=== PATIENT | male | born 1970 | race African-American/Black ===

== ENCOUNTER 2017-06-19 15:08 | Emergency (ER) | payer OTHER ==
[~2017-06-19] VITALS: Ht 167.6 cm; Wt 62.1 kg
[2017-06-19 15:43] LABS: BASOPHIL COUNT 0.1 K/uL (0-0.1); EOSINOPHIL (%) 2.8 % (0-5); EOSINOPHIL COUNT 0.1 K/uL (0-0.3); HEMATOCRIT 44.7 % (38.0-50.0); IMMATURE GRANULOCYTE (%) 0.2 % (0.0-0.7); INSTRUMENT ABS NEUTROPHIL CT 2.9 K/uL; LYMPHOCYTE COUNT 1.5 K/uL (1.0-2.8); MCHC 36.2 G/DL (30.0-36.0); MCV 88.2 FL (86-99); MEAN PLAT.VOLUME 10.2 uM^3 (9.0-12.4); MONOCYTE (%) 7.4 % (3-12); MONOCYTE COUNT 0.4 K/uL (0-0.8); NEUTROPHIL (%) 58.4 % (45-76); NEUTROPHIL COUNT 2.9 K/uL (1.8-6.4); PLATELET COUNT 149 K/uL (156-360); RBC DIS.WIDTH-CV 11.7 % (11.8-14.6); RBC DIS.WIDTH-SD 36.9 % (39-53); RED BLOOD COUNT 5.07 M/uL (4.00-5.50)
[2017-06-19 16:00] LABS: ADD MIUA? NO; BILIRUBIN NEGATIVE; BLOOD NEGATIVE; COLOR YELLOW ((YELLOW)); GLUCOSE (STRIP) NEGATIVE; KETONES NEGATIVE; LEUKOCYTES NEGATIVE; NITRITE NEGATIVE; PROTEIN (STRIP) NEGATIVE; UCUL ADDED? NO
[2017-06-19 16:01] LABS: CHLORIDE 104 mEq/L (99-109); POTASSIUM 4.2 mEq/L (3.7-5.4); SODIUM 143 mEq/L (136-147)
[2017-06-19 16:02] LABS: MAGNESIUM 2.1 mg/dL (1.3-2.7)
[2017-06-19 16:04] LABS: GLUCOSE 90 mg/dL (70-99)
[2017-06-19 16:05] LABS: ANION GAP 11 MEQ/L (2-14)
[2017-06-19 16:06] LABS: TOTAL BILIRUBIN 2.2 mg/dL (0.0-1.0)
[2017-06-19 16:07] LABS: SERUM ETHYL ALCOHOL 177 mg/dL
[2017-06-19 16:08] LABS: ALKALINE PHOSPHATASE 64 IU/L (3-129)
[2017-06-19 16:09] LABS: UREA NITROGEN (BUN) 16 mg/dL (9-23)
[2017-06-19 16:11] LABS: SALICYLATE < 5.0 MG/DL (15-30)
[2017-06-19 16:18] LABS: AMPHETAMINE NEGATIVE (500 ng/mL); BARBITURATES NEGATIVE (200 ng/mL); BENZODIAZEPINES NEGATIVE (150 ng/mL); COCAINE NEGATIVE (150 ng/mL); INTERNAL CONTROLS VALID? YES; METHADONE NEGATIVE (200 ng/mL); METHAMPHETAMINE NEGATIVE (500 ng/mL); OPIATES (MORPHINE) NEGATIVE (100 ng/mL); OXYCODONE NEGATIVE (100 ng/mL); PHENCYCLIDINE NEGATIVE (25 ng/mL); PROPOXYPHENE NEGATIVE (300 ng/mL); THC CANNABINOIDS NEGATIVE (50 ng/mL); TRICYCLIC ANTIDEPRESSANTS NEGATIVE (300 ng/mL)
[2017-06-19 16:18] LABS: GFR ESTIMATE (CALCULATED) > 59 mL/min/ (58.99-99999)
[2017-06-19 21:48] VITALS: BP 124/73
== END 2017-06-19 21:49 | disposition home or self-care (01) ==
LOC: EME 15:08
PROVIDERS: Emergency Medicine
DX: F10.229 Alcohol dependence with intoxication, unspecified (principal); F32.9 Major depressive disorder, single episode, unspecified; Y90.6 Blood alcohol level of 120-199 mg/100 ml; F17.200 Nicotine dependence, unspecified, uncomplicated
CPT/HCPCS: 80053; 81003; 83735; 85025; 90839; 99281; 99284; G0480

== ENCOUNTER 2017-06-23 14:10 | Inpatient (IN) | payer OTHER ==
[~2017-06-23] VITALS: Ht 167.6 cm; Wt 63.6 kg
[2017-06-23 15:50] LABS: HEMATOCRIT 42.1 % (38.0-50.0); HEMOGLOBIN 15.2 G/DL (12.5-16.6); MCH 32.1 PG (29.0-34.0); MCHC 36.1 G/DL (30.0-36.0); MCV 88.8 FL (86-99); PLATELET COUNT 141 K/uL (156-360); RBC DIS.WIDTH-CV 11.6 % (11.8-14.6); RBC DIS.WIDTH-SD 37.3 % (39-53); RED BLOOD COUNT 4.74 M/uL (4.00-5.50); WHITE BLOOD COUNT 5.5 K/uL (4.1-10.2)
[2017-06-23 15:54] LABS: APPEARANCE CLEAR ((CLEAR)); BILIRUBIN NEGATIVE; BLOOD MODERATE; COLOR YELLOW ((YELLOW)); GLUCOSE (STRIP) NEGATIVE; KETONES NEGATIVE; LEUKOCYTES NEGATIVE; NITRITE NEGATIVE; PROTEIN (STRIP) NEGATIVE; SPECIFIC GRAVITY 1.015 (1.000-1.030)
[2017-06-23 15:58] LABS: BACTERIA NONE SEEN /HPF; EPITHELIAL CELLS NONE SEEN /HPF; MUCUS TRACE /LPF; RED BLOOD CELLS TNTC /HPF (0-5); WHITE BLOOD CELLS 0-5 /HPF (0-5)
[2017-06-23 15:59] LABS: ALBUMIN 4.2 g/dL (3.2-4.8); CHLORIDE 105 mEq/L (99-109); POTASSIUM 3.8 mEq/L (3.7-5.4); SODIUM 142 mEq/L (136-147)
[2017-06-23 16:01] LABS: GLUCOSE 67 mg/dL (70-99); TOTAL PROTEIN 7.3 g/dL (6.4-8.3)
[2017-06-23 16:03] LABS: TOTAL BILIRUBIN 1.8 mg/dL (0.0-1.0)
[2017-06-23 16:04] LABS: SERUM ETHYL ALCOHOL 72 mg/dL
[2017-06-23 16:05] LABS: GFR ESTIMATE (CALCULATED) > 59 mL/min/ (58.99-99999)
[2017-06-23 16:06] LABS: ALKALINE PHOSPHATASE 69 IU/L (3-129)
[2017-06-23 16:07] LABS: AST (GOT) 30 IU/L (2-34); UREA NITROGEN (BUN) 11 mg/dL (9-23)
[2017-06-23 16:08] LABS: SALICYLATE < 5.0 MG/DL (15-30)
[2017-06-23 16:09] LABS: ACETAMINOPHEN (TYLENOL) < 10 mcg/mL (10-30); ALT (GPT) 14 IU/L (3-49)
[2017-06-23 19:14] VITALS: BP 124/77
[2017-06-23 19:16] VITALS: BP 124/77
[2017-06-23] MEDS ORDERED: IBUPROFEN600 MG PO (20:43)
[2017-06-24 09:16] VITALS: BP 112/71
[2017-06-24 15:31] VITALS: BP 116/70
[2017-06-25 07:28] VITALS: BP 117/74
== END 2017-06-25 11:30 | disposition home or self-care (01) | DRG 881 ==
LOC: RME 14:10 → EME 14:10 → EDOF 17:46 → 1WEST 17:46 → ENRESERV 18:00 → 1WEST 19:08
PROVIDERS: Physician Assistant
PROC: 0HQ0XZZ Repair Scalp Skin, External Approach (ICD-10-PCS; principal; 2017-06-23)
DX: F32.9 Major depressive disorder, single episode, unspecified (principal); R45.851 Suicidal ideations; S01.01XA Laceration without foreign body of scalp, initial encounter; S02.5XXA Fracture of tooth (traumatic), initial encounter for closed fracture; S60.221A Contusion of right hand, initial encounter; F43.20 Adjustment disorder, unspecified; F10.20 Alcohol dependence, uncomplicated; F17.200 Nicotine dependence, unspecified, uncomplicated; F11.21 Opioid dependence, in remission; Y09 Assault by unspecified means
CPT/HCPCS: 70450; 71010; 71260; 72125; 73030; 73130; 74177; 80053; 81003; 85027; 90839; 99281; 99285; G0480; J7030

== ENCOUNTER 2017-07-11 10:43 | Emergency (ER) | payer OTHER ==
[~2017-07-11] VITALS: Ht 167.6 cm; Wt 62.2 kg
[~2017-07-11 10:43] MED LIST: IBUPROFEN600 MG PO
[2017-07-11 11:14] VITALS: BP 99/62
[2017-07-12] MEDS ORDERED: ASPIRIN325 MG PO (14:34)
== END 2017-07-11 12:05 | disposition left against medical advice (07) ==
LOC: EME 10:43
DX: Z48.02 Encounter for removal of sutures (principal); Z53.21 Procedure and treatment not carried out due to patient leaving prior to being seen by health care provider

== ENCOUNTER 2017-07-12 11:21 | Emergency (ER) | payer OTHER ==
[~2017-07-12] VITALS: Ht 167.6 cm; Wt 62.2 kg
[2017-07-12] MEDS ORDERED: ASPIRIN325 MG PO (14:34)
[2017-07-12 15:19] VITALS: BP 116/76
== END 2017-07-12 15:18 | disposition home or self-care (01) ==
LOC: EME 11:21
DX: S01.01XD Laceration without foreign body of scalp, subsequent encounter (principal); I80.8 Phlebitis and thrombophlebitis of other sites
CPT/HCPCS: 93971; 99281; 99284